=== PATIENT | male | born 1950 | race Caucasian/White ===

== ENCOUNTER 2022-08-24 10:25 | Emergency (ER) | payer OTHER ==
[~2022-08-24] VITALS: Ht 167.6 cm; Wt 81.6 kg
[2022-08-24 10:28] VITALS: BP_SYST 143
[2022-08-24] MEDS ORDERED: LIDOCAINE PATCH 5% 1 EA TP STA (10:52)
--- NOTE | 2022-08-24 11:00 | NUR ---
Pt bib self from home. Pt CC right lateral rib pain. 03/07 [place] [address] Pt walks with tension in shoulders and guards the right side of ribcage. Pt skin intact, aaox3, pt states was wearing a seatbelt NO LOC. 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
--- NOTE | 2022-08-24 11:10 | NUR ---
ER at bedside examining patient.
--- NOTE | 2022-08-24 11:15 | NUR ---
Pt recieved Lido patch placed to lateral mid axillary point of most stated pain. per MD order.
[2022-08-24] MEDS ORDERED: LIDOCAINE PATCH 5% 1 EA TP ONE (11:30)
--- NOTE | 2022-08-24 11:30 | NUR ---
Condenser Tester bedside collecting lab withdrawal.
[2022-08-24 11:50] LABS: BASOPHILS % (AUTO) 0.5 % (0.0-2.0); EOSINOPHILS # (AUTO) 0.2 K/uL (0.0-0.4); EOSINOPHILS % (AUTO) 2.9 % (0.0-4.0); HEMATOCRIT 40.9 % (36-54); HEMOGLOBIN 13.9 g/dL (14.0-18.0); LYMPHOCYTES # (AUTO) 1.6 K/uL (1.0-5.5); LYMPHOCYTES % (AUTO) 24.1 % (20.5-51.5); MEAN CORPUSCULAR HEMOGLOBIN 31 pg (27-31); MEAN CORPUSCULAR HGB CONC 34 % (32-36); MEAN CORPUSCULAR VOLUME 91 fL (79.0-98.0); MONOCYTES # (AUTO) 0.5 K/uL (0.0-1.0); MONOCYTES % (AUTO) 7.5 % (1.7-9.3); NEUTROPHILS # (AUTO) 4.2 K/uL (1.8-7.7); PLATELET COUNT (AUTO) 144 K/uL (130-430); RED BLOOD CELL COUNT(AUTO) 4.52 MIL/uL (4.2-6.2); RED CELL DISTRIBUTION WIDTH 14.1 % (9.0-15.0); WHITE BLOOD COUNT (AUTO) 6.5 K/uL (4.8-10.8)
[2022-08-24 11:59] LABS: ANION GAP 7 (5-15); CALCIUM 8.8 mg/dL (8.4-11.0); CHLORIDE 105 mmol/L (98-107); CREATININE 1.07 mg/dL (0.55-1.30); GLUCOSE 116 mg/dL (70-99); POTASSIUM 4.3 mmol/L (3.5-5.1); UREA NITROGEN, BLOOD 17 mg/dL (8-21)
[2022-08-24 12:08] LABS: ALANINE AMINOTRANSFERASE 17 U/L (12-78); ALBUMIN 3.5 g/dL (3.4-4.8); ASPARTATE AMINOTRANSFERASE 17 U/L (10-37); LIPASE 81 U/L (73-393); TOTAL BILIRUBIN 0.7 mg/dL (0.0-1.0)
[2022-08-24] MEDS ORDERED: LIDO1ADH63 TP (13:02)
--- NOTE | 2022-08-24 13:13 | NUR ---
Patient given written and verbal discharge instructions and verbalizes understanding. ER MD discussed with patient the results and treatment provided. Patient in stable condition. ID arm band removed. Rx of Lidocaine given. Patient educated on pain management and to follow up with PMD. Opportunity for questions provided and answered. Medication side effect fact sheet provided.
[2022-08-24 13:14] VITALS: BP_SYST 143
== END 2022-08-24 13:13 | disposition home or self-care (01) ==
LOC: SED 10:25
DX: S20.211A Contusion of right front wall of thorax, initial encounter (principal); Z79.899 Other long term (current) drug therapy; V43.52XA Car driver injured in collision with other type car in traffic accident, initial encounter; Y93.89 Activity, other specified; Y92.89 Other specified places as the place of occurrence of the external cause; Y99.8 Other external cause status
CPT/HCPCS: 36415; 71045; 76376; 80053; 83690; 84484; 85025; 93005; 99285

== ENCOUNTER 2022-11-10 09:34 | Emergency (ER) | payer OTHER ==
[~2022-11-10] VITALS: Ht 167.6 cm; Wt 77.1 kg
[~2022-11-10 09:34] MED LIST: LIDO1ADH63 TP
[2022-11-10 09:42] VITALS: BP_SYST 149
[2022-11-10 11:05] LABS: BASOPHILS # (AUTO) 0.1 K/uL (0.0-0.2); EOSINOPHILS # (AUTO) 0.2 K/uL (0.0-0.4); EOSINOPHILS % (AUTO) 2.5 % (0.0-4.0); HEMATOCRIT 39.9 % (36-54); HEMOGLOBIN 13.5 g/dL (14.0-18.0); LYMPHOCYTES # (AUTO) 1.7 K/uL (1.0-5.5); LYMPHOCYTES % (AUTO) 19.8 % (20.5-51.5); MEAN CORPUSCULAR HEMOGLOBIN 31 pg (27-31); MEAN CORPUSCULAR HGB CONC 34 % (32-36); MEAN CORPUSCULAR VOLUME 91 fL (79.0-98.0); MONOCYTES # (AUTO) 0.6 K/uL (0.0-1.0); MONOCYTES % (AUTO) 7.4 % (1.7-9.3); NEUTROPHILS # (AUTO) 5.8 K/uL (1.8-7.7); NEUTROPHILS % (AUTO) 69.3 % (40.0-70.0); PLATELET COUNT (AUTO) 183 K/uL (130-430); RED BLOOD CELL COUNT(AUTO) 4.38 MIL/uL (4.2-6.2); RED CELL DISTRIBUTION WIDTH 14.3 % (9.0-15.0); WHITE BLOOD COUNT (AUTO) 8.4 K/uL (4.8-10.8)
[2022-11-10 11:12] LABS: ANION GAP 3 (5-15); CALCIUM 8.6 mg/dL (8.4-11.0); CHLORIDE 104 mmol/L (98-107); CREATININE 0.81 mg/dL (0.55-1.30); GLUCOSE 90 mg/dL (70-99); UREA NITROGEN, BLOOD 12 mg/dL (8-21)
[2022-11-10 11:22] LABS: ALANINE AMINOTRANSFERASE 37 U/L (12-78); ALBUMIN 3.2 g/dL (3.4-4.8); ASPARTATE AMINOTRANSFERASE 29 U/L (10-37); TOTAL BILIRUBIN 0.9 mg/dL (0.0-1.0)
[2022-11-10] MEDS ORDERED: ALBMDI INH (12:29)
[2022-11-10] MEDS ORDERED: LEVO-62 PO (12:29)
[2022-11-10 12:33] VITALS: BP_SYST 149
== END 2022-11-10 12:34 | disposition home or self-care (01) ==
LOC: SED 09:34
DX: J18.9 Pneumonia, unspecified organism (principal); R05.9 Cough, unspecified; R09.81 Nasal congestion; Z79.899 Other long term (current) drug therapy; Z20.822 Contact with and (suspected) exposure to COVID-19
CPT/HCPCS: 36415; 71045; 80053; 83880; 84484; 85025; 99284

== ENCOUNTER 2023-12-31 08:35 | Inpatient (IN) | payer OTHER ==
[~2023-12-31] VITALS: Ht 167.6 cm; Wt 76.7 kg
[~2023-12-31 08:35] MED LIST changes: +ALBMDI INH; +LEVO-62 PO
[2023-12-31 08:50] VITALS: BP_SYST 124; PULSE 62; RESP 32; TEMP 97.9; O2SAT 98
[2023-12-31 09:17] LABS: ANION GAP 7 (5-15); BASOPHILS % (AUTO) 0.1 % (0.0-2.0); CALCIUM 8.9 mg/dL (8.4-11.0); CARBON DIOXIDE 28 mmol/L (23-29); CHLORIDE 105 mmol/L (98-107); CREATININE 0.83 mg/dL (0.55-1.30); EOSINOPHILS # (AUTO) 0.1 K/uL (0.0-0.4); GLUCOSE 76 mg/dL (74-106); HEMATOCRIT 40.3 % (36-54); HEMOGLOBIN 13.6 g/dL (14.0-18.0); LYMPHOCYTES # (AUTO) 1.4 K/uL (1.0-5.5); LYMPHOCYTES % (AUTO) 13.8 % (20.5-51.5); MEAN CORPUSCULAR HEMOGLOBIN 31 pg (27-31); MEAN CORPUSCULAR HGB CONC 34 % (32-36); MEAN CORPUSCULAR VOLUME 90 fL (79.0-98.0); MONOCYTES # (AUTO) 0.9 K/uL (0.0-1.0); MONOCYTES % (AUTO) 8.6 % (1.7-9.3); NEUTROPHILS # (AUTO) 7.6 K/uL (1.8-7.7); NEUTROPHILS % (AUTO) 76.5 % (40.0-70.0); PLATELET COUNT (AUTO) 119 K/uL (130-430); POTASSIUM 4.4 mmol/L (3.5-5.1); RED BLOOD CELL COUNT(AUTO) 4.47 MIL/uL (4.2-6.2); SODIUM SERUM 140 mmol/L (136-145); UREA NITROGEN, BLOOD 11 mg/dL (8-21)
[2023-12-31 09:43] LABS: INFLUENZA TYPE A Negative (NEGATIVE); INFLUENZA TYPE B NEGATIVE (NEGATIVE)
[2023-12-31] MEDS: FUROSEMIDE 20 MG/2 ML VIAL IVP ONE (10:07)
[2023-12-31 10:15] VITALS: BP_SYST 124; PULSE 62; O2SAT 98
[2023-12-31] MEDS ORDERED: ZOLPIDEM TARTRATE 5 MG TABLET PO PRN (10:15)
[2023-12-31] MEDS ORDERED: LORazepam 2 MG/ML VIAL IVP PRN (10:15)
[2023-12-31] MEDS ORDERED: DOCUSATE SODIUM 100 MG CAPSULE PO PRN (10:15)
[2023-12-31] MEDS ORDERED: MAGNESIUM SULFATE 50 ML IV PRN (10:15)
[2023-12-31] MEDS ORDERED: ACETAMINOPHEN 325 MG TABLET PO PRN ×2 (10:15→10:30)
[2023-12-31] MEDS ORDERED: MORPHINE 2 MG/ML INJ. SYRINGE IVP PRN ×2 (10:15)
[2023-12-31] MEDS ORDERED: MUPIROCIN 2% TOPICAL OINTMENT 22 GM NS PRN (10:15)
[2023-12-31] MEDS ORDERED: ONDANSETRON HCL 4 MG/2 ML VIAL IVP PRN (10:15)
[2023-12-31] MEDS ORDERED: ALBUTEROL SULFATE 0.083% 2.5 MG/3 ML VIAL.NEB INH PRN (10:15)
[2023-12-31] MEDS ORDERED: POTASSIUM CHLORIDE 20 MEQ TABLET.ER PO PRN (10:15)
[2023-12-31] MEDS ORDERED: DEXTROSE 50% JECT 50 ML DISP.SYRIN IVP PRN (10:45)
[2023-12-31] MEDS ORDERED: LIP40 PO (11:04)
[2023-12-31] MEDS ORDERED: INSU100V53 (11:04)
[2023-12-31] MEDS ORDERED: CARV6.2554 PO (11:04)
[2023-12-31] MEDS ORDERED: ISOS30TA85 PO (11:06)
[2023-12-31] MEDS ORDERED: METF-379 PO (11:07)
[2023-12-31 12:28] VITALS: BP_SYST 157; PULSE 53; RESP 18; TEMP 97.9; O2SAT 98
[2023-12-31] MEDS ORDERED: OMEP20CA15 PO (12:29)
[2023-12-31] MEDS ORDERED: LISI10TA29 PO (12:29)
[2023-12-31] MEDS ORDERED: SITA25TA3 PO (12:31)
[2023-12-31 13:41] VITALS: BP_SYST 157; PULSE 60; RESP 17; TEMP 97.9; O2SAT 68
[2023-12-31 16:58] VITALS: BP_SYST 132; PULSE 58; RESP 17; TEMP 97.5; O2SAT 92
[2023-12-31] MEDS ORDERED: ALBUTEROL MDI INHALATION 8 GM INH INH PRN (18:15)
[2023-12-31 20:00] VITALS: BP_SYST 142; PULSE 68; RESP 18; TEMP 98.1; O2SAT 93
[2023-12-31] MEDS: CARVEDILOL 6.25 MG TABLET (COREG) PO SCH (22:13)
[2023-12-31] MEDS: cefTRIAXone 1 GM in D5W 50 ML IV SCH (23:15)
[2024-01-01] VITALS: BP_SYST 136; PULSE 82; RESP 18; TEMP 97.2; O2SAT 95
[2024-01-01 00:53] LABS: BILIRUBIN,URINE NEGATIVE (NEGATIVE); CLARITY/URINE CLEAR (CLEAR); COLOR,URINE YELLOW (YELLOW); GLUCOSE,URINE NEGATIVE (NEGATIVE); KETONES,URINE NEGATIVE (NEGATIVE); LEUKOCYTE ESTERASE ,URINE NEGATIVE (NEGATIVE); NITRITE, URINE NEGATIVE (NEGATIVE); PROTEIN URINE TRACE (NEGATIVE); UROBILINOGEN,URINE 0.2 (0.2-1.0)
[2024-01-01 02:25] LABS: BLOOD, URINE TRACE (NEGATIVE)
[2024-01-01 02:26] LABS: BACTERIA,URINE None Seen /HPF (None Seen); WBC,URINE NONE SEEN /HPF (0-3)
[2024-01-01 04:23] LABS: BASOPHILS % (AUTO) 0.2 % (0.0-2.0); EOSINOPHILS # (AUTO) 0.1 K/uL (0.0-0.4); EOSINOPHILS % (AUTO) 0.8 % (0.0-4.0); HEMATOCRIT 40.3 % (36-54); HEMOGLOBIN 13.8 g/dL (14.0-18.0); LYMPHOCYTES # (AUTO) 1.1 K/uL (1.0-5.5); LYMPHOCYTES % (AUTO) 11.5 % (20.5-51.5); MEAN CORPUSCULAR HEMOGLOBIN 31 pg (27-31); MEAN CORPUSCULAR HGB CONC 34 % (32-36); MEAN CORPUSCULAR VOLUME 90 fL (79.0-98.0); MONOCYTES # (AUTO) 0.8 K/uL (0.0-1.0); MONOCYTES % (AUTO) 8.3 % (1.7-9.3); NEUTROPHILS # (AUTO) 7.9 K/uL (1.8-7.7); NEUTROPHILS % (AUTO) 79.2 % (40.0-70.0); PLATELET COUNT (AUTO) 125 K/uL (130-430); RED CELL DISTRIBUTION WIDTH 14.3 % (9.0-15.0); WHITE BLOOD COUNT (AUTO) 9.9 K/uL (4.8-10.8)
[2024-01-01 04:43] LABS: ALANINE AMINOTRANSFERASE 13 U/L (12-78); ANION GAP 8 (5-15); ASPARTATE AMINOTRANSFERASE 13 U/L (10-37); CALCIUM 8.8 mg/dL (8.4-11.0); CARBON DIOXIDE 27 mmol/L (23-29); CHLORIDE 103 mmol/L (98-107); CHOLESTEROL 78 mg/dL (<200); CREATININE 0.81 mg/dL (0.55-1.30); GLUCOSE 129 mg/dL (74-106); HDL CHOLESTEROL 46 mg/dL (>45); SODIUM SERUM 138 mmol/L (136-145); THYROID STIMULATING HORMONE 0.56 uIu/mL (0.34-4.82); TOTAL BILIRUBIN 1.1 mg/dL (0.0-1.0); TOTAL PROTEIN, SERUM 7.1 g/dL (6.4-8.3); TRIGLYCERIDES 58 mg/dL (30-150); UREA NITROGEN, BLOOD 12 mg/dL (8-21)
[2024-01-01 07:49] VITALS: O2SAT 94
[2024-01-01 08:00] VITALS: BP_SYST 135; PULSE 79; RESP 20; TEMP 97.9; O2SAT 99
[2024-01-01 08:15] VITALS: O2SAT 99
[2024-01-01] MEDS ORDERED: METOPROLOL SUCCINATE 25 MG TAB.SR.24H (TOPROL XL) PO SCH (09:00)
[2024-01-01 11:14] VITALS: BP_SYST 132; PULSE 53; RESP 17; TEMP 97.7; O2SAT 94
[2024-01-01] MEDS: guaiFENesin 200 MG/10 ML UDC PO SCH (11:15)
[2024-01-01] MEDS: ATORVASTATIN 20 MG TABLET PO SCH (11:15)
[2024-01-01] MEDS: ASPIRIN 81 MG TABLET(ECOTRIN) PO SCH (11:15)
[2024-01-01] MEDS: ISOSORBIDE MONONITRATE 30 MG TAB.ER.24H PO SCH (11:16)
[2024-01-01] MEDS: FUROSEMIDE 40 MG/4 ML VIAL IVP SCH (11:16)
[2024-01-01] MEDS: AZITHROMYCIN 250 MG TABLET PO ONE (11:19)
[2024-01-01] MEDS: INSULIN LISPRO SLIDING SCALE 100 UNITS/ML, 3 ML VIAL (humaLOG) SUBCUT PRN (11:34)
[2024-01-01] MEDS ORDERED: ALOG25TA2 PO (11:38)
[2024-01-01] MEDS ORDERED: MAGN400T7 PO (11:38)
[2024-01-01] MEDS ORDERED: INSU100V53 SQ (11:39)
[2024-01-01 20:00] VITALS: BP_SYST 123; PULSE 68; RESP 18; TEMP 97.4; O2SAT 94
[2024-01-02] VITALS: BP_SYST 128; PULSE 69; RESP 16; TEMP 97.5; O2SAT 96
[2024-01-02 05:58] LABS: BASOPHILS % (AUTO) 0.1 % (0.0-2.0); EOSINOPHILS # (AUTO) 0.2 K/uL (0.0-0.4); HEMATOCRIT 40.7 % (36-54); HEMOGLOBIN 14.1 g/dL (14.0-18.0); LYMPHOCYTES # (AUTO) 1.6 K/uL (1.0-5.5); LYMPHOCYTES % (AUTO) 20.4 % (20.5-51.5); MEAN CORPUSCULAR HEMOGLOBIN 31 pg (27-31); MEAN CORPUSCULAR HGB CONC 35 % (32-36); MEAN CORPUSCULAR VOLUME 88 fL (79.0-98.0); MONOCYTES # (AUTO) 0.8 K/uL (0.0-1.0); MONOCYTES % (AUTO) 9.8 % (1.7-9.3); NEUTROPHILS # (AUTO) 5.2 K/uL (1.8-7.7); NEUTROPHILS % (AUTO) 67.7 % (40.0-70.0); PLATELET COUNT (AUTO) 140 K/uL (130-430); RED BLOOD CELL COUNT(AUTO) 4.61 MIL/uL (4.2-6.2); WHITE BLOOD COUNT (AUTO) 7.7 K/uL (4.8-10.8)
[2024-01-02 06:31] LABS: ANION GAP 6 (5-15); CALCIUM 8.9 mg/dL (8.4-11.0); CARBON DIOXIDE 30 mmol/L (23-29); CHLORIDE 103 mmol/L (98-107); GLUCOSE 129 mg/dL (74-106); POTASSIUM 4.1 mmol/L (3.5-5.1); SODIUM SERUM 139 mmol/L (136-145); UREA NITROGEN, BLOOD 20 mg/dL (8-21)
[2024-01-02 08:00] VITALS: BP_SYST 134; PULSE 87; RESP 16; TEMP 99; O2SAT 95
[2024-01-02] MEDS ORDERED: POTA-178 PO (08:35)
[2024-01-02] MEDS ORDERED: ASPI-1393 PO (08:35)
[2024-01-02] MEDS ORDERED: FURO-149 PO (08:35)
[2024-01-02] MEDS ORDERED: ZIT250 PO (08:40)
[2024-01-02] MEDS: AZITHROMYCIN 250 MG TABLET PO SCH (09:51)
[2024-01-02 10:10] VITALS: O2SAT 95
[2024-01-02 11:20] VITALS: BP_SYST 127; PULSE 72; RESP 17; TEMP 97.7; O2SAT 95
[2024-01-02 12:21] VITALS: BP_SYST 129; PULSE 77; RESP 18; TEMP 98.9; O2SAT 95
== END 2024-01-02 12:30 | disposition home or self-care (01) | DRG 193 ==
LOC: SED 08:35 → STU 10:07
PROVIDERS: ADMIT Family Medicine; ATTEND Family Medicine
DX: J18.9 Pneumonia, unspecified organism (principal); I50.23 Acute on chronic systolic (congestive) heart failure; E11.9 Type 2 diabetes mellitus without complications; Z20.822 Contact with and (suspected) exposure to COVID-19; E78.5 Hyperlipidemia, unspecified; I25.10 Atherosclerotic heart disease of native coronary artery without angina pectoris; J06.9 Acute upper respiratory infection, unspecified; D64.9 Anemia, unspecified; J45.909 Unspecified asthma, uncomplicated; Z77.098 Contact with and (suspected) exposure to other hazardous, chiefly nonmedicinal, chemicals; Z65.5 Exposure to disaster, war and other hostilities; Z85.46 Personal history of malignant neoplasm of prostate; Z87.891 Personal history of nicotine dependence; Z95.1 Presence of aortocoronary bypass graft
CPT/HCPCS: 36415; 71045; 80048; 80053; 80061; 81000; 81001; 81015; 82948; 83735; 83880; 84443; 84484; 85025; 85379; 93005; 93306; 94760; 96374; 99285; G0378; J0696; J1940; J7060; Q0144